=== PATIENT | male | born 1970 | race Caucasian/White ===

== ENCOUNTER → 2025-02-14 10:03 | Outpatient (REF) | payer BC, SELFPAY | LOC: RCS 10:03 | PROVIDERS: ATTENDING PHYSICIAN Nurse Practitioner; FAMILY PHYSICIAN Nurse Practitioner Family | DX: R00.2 Palpitations (principal) | CPT/HCPCS: 93306 ==

== ENCOUNTER → 2025-02-21 12:50 | Outpatient (REF) | payer BC, SELFPAY ==
[2025-02-21] MEDS: LOPRESSOR 25 MG PO (13:30)
== END ==
LOC: RCS 12:50
PROVIDERS: ATTENDING PHYSICIAN Nurse Practitioner; FAMILY PHYSICIAN Nurse Practitioner Family
DX: R00.2 Palpitations (principal)
CPT/HCPCS: 93005; 93017